=== PATIENT | male | born 1965 | race Caucasian/White ===

== ENCOUNTER 2017-12-26 14:12 | Observation (INO) ==
[2017-12-26 16:38] LABS: BASOPHILS % (AUTO) 0.5 % (0.2-1.0); EOSINOPHILS # (AUTO) 0.4 x10^3/uL (0.0-0.2); HEMATOCRIT 42.7 % (42.0-54.0); HEMOGLOBIN 15.2 g/dL (13.5-18.0); LYMPHOCYTES # (AUTO) 1.7 X10^3/uL (1.3-2.9); LYMPHOCYTES % (AUTO) 23.3 % (21.0-51.0); MEAN CORPUSCULAR HEMOGLOBIN 31.9 pg (27.0-34.0); MEAN CORPUSCULAR HGB CONC 35.6 g/dL (33.0-35.0); MEAN CORPUSCULAR VOLUME 89.7 fL (80.0-100.0); MEAN PLATELET VOLUME 8.5 fL (7.4-11.0); MONOCYTES # (AUTO) 0.6 x10^3/uL (0.3-0.8); MONOCYTES % (AUTO) 8.4 % (0.0-13.0); NEUTROPHILS # (AUTO) 4.6 x10^3/uL (2.2-4.8); NEUTROPHILS % (AUTO) 62.8 % (42.0-75.0); PLATELET COUNT 220 X10^3/uL (150.0-450.0); RED BLOOD COUNT 4.76 X10^6/uL (4.7-6.0); RED CELL DISTRIBUTION WIDTH 13.2 % (11.6-16.5); WHITE BLOOD COUNT 7.4 X10^3/uL (3.6-10.0)
[2017-12-26 16:52] LABS: ALANINE AMINOTRANSFERASE 34 Units/L (12-78); ALBUMIN 3.6 g/dL (3.4-5.0); ALKALINE PHOSPHATASE 88 Units/L (46-116); ASPARTATE AMINO TRANSFERASE 15 Units/L (15-37); BLOOD UREA NITROGEN 15 mg/dL (7-18); CALCIUM 8.8 mg/dL (8.5-10.1); CARBON DIOXIDE 27.3 mmol/L (21-32); CHLORIDE 104 mmol/L (98-107); CKMB % 1.6 % (<4); COR NA(FOR HYPERGLY) 144 mmol/L (136-145); CREATINE KINASE 118 Units/L (39-308); CREATINE KINASE MB 1.9 ng/mL (0-4.0); SODIUM 139 mmol/L (136-145); TOTAL PROTEIN 7.3 g/dL (6.4-8.2); TROPONIN I < 0.02 ng/mL (0-1.5); eGFR NON BLACK RACES > 60 (>60)
[2017-12-26] MEDS: ZESTRIL TAB 5 MG PO SCH (17:22)
[2017-12-26] MEDS: ROBITUSSIN DM PO SCH ×2 (17:22→20:22)
[2017-12-26] MEDS: LIPITOR TAB 40 MG PO SCH (17:22)
[2017-12-26] MEDS: LEVAQUIN PREMIX IV 500 MG 500 MG/100 ML BAG IV SCH (17:22)
[2017-12-26] MEDS: ASPIRIN PO SCH (17:22)
[2017-12-26] MEDS: NS 1000 ML 1,000 ML IV SCH (17:22)
[2017-12-26 18:25] VITALS: BMI 31.8
[2017-12-26] MEDS ORDERED: VISTARIL PO PRN (19:58)
[2017-12-26] MEDS ORDERED: SNACK - Diabetic Appropriate PO SCH (20:00)
[2017-12-26] MEDS: HumuLIN R SUBCUT PRN (20:25)
[2017-12-26 21:02] LABS: CKMB % 1.3 % (<4); CREATINE KINASE 132 Units/L (39-308); CREATINE KINASE MB 1.7 ng/mL (0-4.0); TROPONIN I < 0.02 ng/mL (0-1.5)
[2017-12-27 00:39] LABS: CKMB % 0.9 % (<4); CREATINE KINASE 164 Units/L (39-308); CREATINE KINASE MB 1.5 ng/mL (0-4.0); TROPONIN I < 0.02 ng/mL (0-1.5)
[2017-12-27 05:07] LABS: BASOPHILS # (AUTO) 0.1 X10^3/uL (0.0-0.1); BASOPHILS % (AUTO) 1.1 % (0.2-1.0); EOSINOPHILS # (AUTO) 0.4 x10^3/uL (0.0-0.2); HEMATOCRIT 41.8 % (42.0-54.0); HEMOGLOBIN 14.6 g/dL (13.5-18.0); LYMPHOCYTES # (AUTO) 1.6 X10^3/uL (1.3-2.9); LYMPHOCYTES % (AUTO) 26.9 % (21.0-51.0); MEAN CORPUSCULAR HEMOGLOBIN 31.8 pg (27.0-34.0); MEAN CORPUSCULAR VOLUME 90.8 fL (80.0-100.0); MEAN PLATELET VOLUME 8.9 fL (7.4-11.0); MONOCYTES # (AUTO) 0.6 x10^3/uL (0.3-0.8); MONOCYTES % (AUTO) 9.2 % (0.0-13.0); NEUTROPHILS # (AUTO) 3.5 x10^3/uL (2.2-4.8); NEUTROPHILS % (AUTO) 56.8 % (42.0-75.0); PLATELET COUNT 207 X10^3/uL (150.0-450.0); RED CELL DISTRIBUTION WIDTH 13.2 % (11.6-16.5); WHITE BLOOD COUNT 6.1 X10^3/uL (3.6-10.0)
[2017-12-27 05:14] LABS: ALANINE AMINOTRANSFERASE 33 Units/L (12-78); ALBUMIN 3.1 g/dL (3.4-5.0); ALKALINE PHOSPHATASE 83 Units/L (46-116); ASPARTATE AMINO TRANSFERASE 16 Units/L (15-37); BLOOD UREA NITROGEN 14 mg/dL (7-18); CALCIUM 8.5 mg/dL (8.5-10.1); CARBON DIOXIDE 29.8 mmol/L (21-32); CHLORIDE 104 mmol/L (98-107); COR CA(FOR HYPOALB) 9.2 mg/dL (8.5-10.1); COR NA(FOR HYPERGLY) 143 mmol/L (136-145); CREATININE 0.86 mg/dL (0.70-1.30); SODIUM 139 mmol/L (136-145); TOTAL PROTEIN 6.5 g/dL (6.4-8.2); eGFR NON BLACK RACES > 60 (>60)
[2017-12-27] MEDS: HumuLIN R SUBCUT PRN ×2 (05:35→11:48)
[2017-12-27] MEDS: NS 1000 ML 1,000 ML IV SCH (06:15)
--- NOTE | 2017-12-27 07:04 | RAD ---
HISTORY: Shortness of breath Study: Chest AP portable Comparison: 12/24/2017 Findings: The heart is within normal limits in size. The rocio are normal. The lungs are hyperinflated but free of acute alveolar infiltrates. No pleural effusions are identified. The bony thorax is unremarkable w ith the exception of glenohumeral degenerative joint disease on the left. IMPRESSION: Lungs mildly hyperinflated but clear Reported By:
[2017-12-27 08:22] VITALS: BP 113/64
[2017-12-27] MEDS: ASPIRIN PO SCH (08:52)
[2017-12-27] MEDS: ROBITUSSIN DM PO SCH (08:52)
[2017-12-27] MEDS: LIPITOR TAB 40 MG PO SCH (08:53)
[2017-12-27] MEDS: ZESTRIL TAB 5 MG PO SCH (08:53)
[2017-12-27] MEDS: LEVAQUIN PREMIX IV 500 MG 500 MG/100 ML BAG IV SCH (08:53)
--- NOTE | 2018-02-12 23:12 | DR.CARTERD ---
- Discharge Summary for: Discharge Summary for Date of:: 12/27/17 - Admission Date Date of Admission: 12/26/17 - Admission Diagnoses Admission Diagnosis: 1. Chest pain 2. Acute bronchitis - Discharge Date Discharge Date: 12/27/17 - Discharge Diagnoses Discharge Diagnosis: 1. Chest pain 2. Acute bronchitis - Hospital Course Hospital Course: Day one, Mr. Palomino presented to the hospital as a direct admission with reports of chest pain. Patient reported he was started on Amoxicillin last week after being diagnosed with bronchitis and reported minimal results. Patient stated he was seen in the emergency room on Monday with no changes noted in symptoms. Patient described pain as a pressure. Patient admitted to the hospital as observation for further evaluation and treatment. Serial cardiac enzymes and EKG's obtained. Medical History: Hyperlipidemia, Hypertension, Asthma, Pneumonia, UTI's, Arthritis, DM type II. Medications: Aspirin 325mg po daily, Lipitor 40mg po daily, Levaquin 500mg IV daily, Zestril 5mg po dialy, NS @75ml/hr, Robitussin DM 10ml po QID, OTBS ACHS, Humulin R sliding scale PRN, Vistaril 25-50mg po Q8hr PRN. Abnormal Labs: MCHC 35.6, Glucose 323, A/G Ratio 1.0. EKG: Sinus Rhythm. Rate=80. We continued to monitor. On day two, patient reported symptoms had resolved. Patient denied chest pain or shortness of breath. He reported cough was improving. On auscultation, lungs were noted with scattered rhonchi to upper lobes. All cardiac enzymes and ekg's wnl. Vital signs stable. Labs wnl. We planned for discharge. Instructions for medications and follow up were discussed with patient and family, both voiced understanding. Patient discharged home in stable condition with family. - Discharge Medications Discharge Medications: Home Medication List benzonatate [Tessalon Perles] 200 mg PO TID 12/26/17 [History] aspirin [Ecotrin] 325 mg PO QDAY #90 tab 12/27/17 [Rx] metformin [Glucophage] 500 mg PO BID #60 tab 12/27/17 [Rx] rosuvastatin [Crestor] 10 mg PO QDAY #30 tab 12/27/17 [Rx] Prescriptions: aspirin [Ecotrin] Eugenio Bullard metformin [Glucophage] Eugenio Bullard rosuvastatin [Crestor] Eugenio Bullard amoxicillin 500 mg PO TID #30 tab 12/24/17 - Discharge Disposition Discharge Disposition: Patient is to follow up in our office in one week.
== END 2017-12-27 11:47 | disposition home or self-care (01) ==
LOC: MED/SURG
PROVIDERS: ADMIT Internal Medicine; ATTEND Internal Medicine
DX: J40 Bronchitis, not specified as acute or chronic; R07.89 Other chest pain; R42 Dizziness and giddiness; R06.02 Shortness of breath
CPT/HCPCS: 36415; 71010; 71045; 80053; 82550; 82553; 83036; 84484; 85025; 93005; 94760; A4222; G0378; J1815; J1956; J7030